=== PATIENT | female | born 1955 | race Caucasian/White ===

== ENCOUNTER 2020-12-23 09:19 | Outpatient (CLI) | payer OTHER, SELFPAY ==
--- NOTE | ~2020-12-23 | MM_ITS ---
EXAMINATION: MM screening [facility] BI w aparna HISTORY: Screening mammogram TECHNIQUE: Craniocaudal and mediolateral oblique 3-D tomosynthesis images were obtained and synthetic 2-D images were generated. CAD analysis was submitted and interpreted. COMPARISON: 06/16/2019, 03/13/2017, 09/29/2014 BREAST PARENCHYMAL COMPOSITION: There are scattered areas of fibroglandular density. FINDINGS: Stable bilateral breast masses are consistent with benign findings. There is no evidence of suspicious mass, calcification, or architectural distortion to suggest malignancy in either breast. There has been no suspicious interval change. IMPRESSION: 1. No mammographic evidence of malignancy. 2. Recommend routine screening mammography in one year. BI-RADS Category 2: Benign finding(s). Reviewed, dictated and finalized at location A.
== END 2020-12-23 09:20 | disposition home or self-care (01) ==
LOC: ANHIMG 09:22
PROVIDERS: PCP Family Medicine; Visit Provider Family Medicine
DX: Z12.31 Encounter for screening mammogram for malignant neoplasm of breast (principal)
CPT/HCPCS: 77063; 77067

== ENCOUNTER 2021-09-22 13:46 | Outpatient (CLI) | payer OTHER, SELFPAY ==
--- NOTE | ~2021-09-22 | CT_ITS ---
EXAMINATION: CT lung screening EXAM DATE: 09/22/2021 14:21 INDICATION: Screening lung cancer. TECHNIQUE: Spiral low dose CT of the chest without contrast. Axial, coronal and sagittal images were reviewed. The dose-length product (DLP) for this examination was 62.52 mGy-cm. The exposure was ta ilored according to patient size (auto mA exposure control), and iterative reconstruction (ASIR) was used as additional dose reduction technique. There is no prior study for comparison. FINDINGS: Moderate emphysema. Moderate hyperinflation. Biapical opacities consistent with scarring. Tracheobronchial tree is patent. There is no mediastinal, hilar or axillary lymphadenopathy. The re are no pleural or pericardial effusions. There is no pneumothorax. Heart normal in size. Upp er abdomen is unremarkable. There is thoracic spondylosis without osteoblastic or osteolytic lesion s identified. IMPRESSION: Lung-RADS category 2, benign appearance or behavior (<1% chance of malignancy); recommend continued LDCT screening in 1 year. Reviewed, dictated and finalized at location B.
== END 2021-09-22 13:47 | disposition home or self-care (01) ==
PROVIDERS: PCP Family Medicine; Visit Provider Physician Assistant
DX: Z12.2 Encounter for screening for malignant neoplasm of respiratory organs (principal); Z87.891 Personal history of nicotine dependence
CPT/HCPCS: 71271

== ENCOUNTER → 2021-09-22 14:34 | Outpatient (CLI) | payer OTHER, SELFPAY ==
--- NOTE | ~2021-09-22 | XR_ITS ---
XR lumbar spine min 4V DATE: 09/22/2021 15:06 INDICATION: Back pain, radiculopathy TECHNIQUE: AP, lateral, bilateral oblique views, coned lateral lumbosacral view COMPARISON: None FINDINGS: There is diffuse osteopenia. There is minimal levoscoliosis. There is moderate degenerative disc disease at L4-5. Remaining lumbar and lumbosacral interspaces are well preserved. No fracture or bone destruction, spondylolysis or spondylolisthesis. The sacroiliac joints are intact. IMPRESSION: Osteopenia Minimal levoscoliosis Moderate degenerative disc disease at L4-5 Reviewed, dictated and finalized at location A.
--- NOTE | ~2021-09-22 | XR_ITS ---
EXAMINATION: XR hip LT min 2V DATE: 09/22/2021 15:06 INDICATION: Low back pain radiating down the left leg. TECHNIQUE: 2 views of left hip were obtained. COMPARISON: None. FINDINGS: Bone alignment is normal. No fracture. Left hip joint space is normal. IMPRESSION: 1. Normal left hip. Reviewed, dictated and finalized at location A. IMPRESSION: 1. Normal left hip.
== END ==
PROVIDERS: Visit Provider Physician Assistant
DX: M54.16 Radiculopathy, lumbar region (principal); M51.36 Other intervertebral disc degeneration, lumbar region; M85.88 Other specified disorders of bone density and structure, other site
CPT/HCPCS: 72110; 73502

== ENCOUNTER 2022-10-05 12:18 | Outpatient (CLI) | payer MEDICARE, SELFPAY ==
--- NOTE | 2022-10-05 12:47 | ECG_ITS ---
Measurements Intervals [place] Rate: 63 P: 56 CA: 157 QRS: 49 QRSD: 78 T: 42 QT: 397 QTc: 408 Interpretive Statements SINUS RHYTHM NORMAL ECG NO PREVIOUS ECG AVAILABLE FOR COMPARISON Electronically Signed On 10-05-2022 14:26:15 CDT by Alejandro Gunn M.D.
== END 2022-10-05 12:19 | disposition home or self-care (01) ==
LOC: ANHCARD 12:27
PROVIDERS: PCP Family Medicine; Visit Provider Physician Assistant
DX: R07.9 Chest pain, unspecified (principal)
CPT/HCPCS: 93005

== ENCOUNTER 2022-12-13 08:07 | Outpatient (CLI) | payer MEDICARE, SELFPAY ==
--- NOTE | ~2022-12-13 | MM_ITS ---
EXAMINATION: MM screening [facility] BI w aparna HISTORY: Screening mammogram TECHNIQUE: Craniocaudal and mediolateral oblique 3-D tomosynthesis images were obtained and synthetic 2-D images were generated. CAD analysis was submitted and interpreted. COMPARISON: 12/23/2020, 06/16/2019, 03/13/2017 BREAST PARENCHYMAL COMPOSITION: There are scattered areas of fibroglandular density. FINDINGS: No suspicious mass, calcification, or architectural distortion are identified in either becca ast to suggest malignancy. There has been no suspicious interval change. IMPRESSION: 1. No mammographic evidence of malignancy. 2. Recommend routine screening mammography in one year. BI-RADS Category 1: Negative Reviewed, dictated and finalized at location A.
== END 2022-12-13 08:08 | disposition home or self-care (01) ==
PROVIDERS: PCP Family Medicine; Visit Provider Physician Assistant
DX: Z12.31 Encounter for screening mammogram for malignant neoplasm of breast (principal)
CPT/HCPCS: 77063; 77067

== ENCOUNTER 2023-02-26 11:15 | Emergency (ER) | payer MEDICARE, SELFPAY ==
[2023-02-26 11:20] VITALS: BP 133/82; PULSE 85; RESP 20; TEMP 36.5; O2SAT 99
--- NOTE | 2023-02-26 11:57 | ED.EAR ---
HPI - Ear Problem General Chief complaint: Ear Stated complaint: Right Ear Pain Time Seen by Provider: 02/26/23 11:50 Source: patient, RN notes reviewed and old records reviewed Mode of arrival: ambulatory Limitations: no limitations History of Present Illness HPI Narrative: 67 year old female presents to [facility] care with complaints of right ear itching starting on the 8th with increased symptoms since the with pain and brownish yellow drainage with some blood noted from her right ear. Patient reports past history of ear infections and has been taking some Ibuprofen and Claritin for her symptoms. Patient reports some decreased hearing from her right ear. Patient denies any known fevers, chills or sweats or any body aches. MD Complaint: ear pain, ear discharge and decreased hearing Location: right ear Duration: constant Severity: moderate Discharge from ear: Reports yes - bloody (brown and yellow) Treatment prior to arrival: oral analgesic and other (Claritin) Related Data Allergies Allergy/AdvReac Type Severity Reaction Status Date / Time clarithromycin [From Biaxin] Allergy Unknown Hives Verified 02/26/23 11:17 clindamycin Allergy Unknown Hives Verified 02/26/23 11:17 erythromycin base Allergy Unknown Hives Verified 02/26/23 11:17 acetaminophen AdvReac Unknown Nausea and Verified 02/26/23 11:17 [From Tylenol-Codeine #3] Vomiting codeine AdvReac Unknown Nausea and Verified 02/26/23 11:17 [From Tylenol-Codeine #3] Vomiting Review of Systems Review of Systems: CONSTITUTIONAL: Denies malaise, chills, sweats, or fever. EYES: Denies visual changes, redness, or discharge. ENT: Reports rhinorrhea, congestion, no sinus pain, right otalgia and no sore throat. CARDIOVASCULAR: Denies chest pain, palpitations, or edema. RESPIRATORY: Reports no cough.? Denies dyspnea. GASTROINTESTINAL: Denies abdominal pain, nausea, vomiting, diarrhea SKIN: Denies rash or itching. MUSCULOSKELETAL: Denies myalgia. NEUROLOGIC: Denies headache. All systems reviewed & are unremarkable except as noted in HPI and below PMFSH Past Medical History Medical History Disorder of intervertebral disc of cervical spine Mixed hyperlipidemia Normal colonoscopy (~2017) Osteoporosis Tobacco abuse Vitamin B12 deficiency Vitamin D deficiency Surgical History Surgical History H/O cervical discectomy 1997 C 6-7 and 2003 C 5-6 H/O vaginal hysterectomy Hx of tonsillectomy Family History Family History Grandparent Diabetes mellitus Mother Atrial fibrillation Other Back pain Cataracts, bilateral Osteoporosis Social History Social History Smoking packs per day: 0.5 Smoking cigarettes per day: 10.0 Years smoked: 40 Smoking pack-years: 20.00 Smoking status: Current every day smoker Tobacco type: cigarettes Second hand tobacco smoke exposure: No Alcohol intake: never Substance use: never Substance use type: does not use Lack of Transportation: No Lack of Food: Never True Current Housing: I Have Housing Concerned About Future Housing: No Difficulty Paying Gas/Electric Bills: No Difficulty Paying for Meds: No Currently Unemployed: No Education: High School Diploma/GED Difficulty w/ Childcare or Family Care: No Living arrangements: with family Gender identity (if verbalized by the patient): Female Sexual Orientation (if Verbalized by the Patient): Straight or Heterosexual Spiritual care concerns: No Agree to blood products: Yes Comments At time of signature, agree with nursing past medical, surgical, social and family history. There is no relevant family history pertinent to the presenting complaint Exam Narrative: GENERAL: Well-appearing, well-nourish
== END 2023-02-26 12:12 | disposition home or self-care (01) ==
PROVIDERS: Emergency Provider Registered Nurse; PCP Family Medicine
DX: H60.311 Diffuse otitis externa, right ear (principal); H66.001 Acute suppurative otitis media without spontaneous rupture of ear drum, right ear; F17.210 Nicotine dependence, cigarettes, uncomplicated; E78.5 Hyperlipidemia, unspecified; M81.0 Age-related osteoporosis without current pathological fracture
CPT/HCPCS: 99213; G0463

== ENCOUNTER 2023-11-13 10:29 | Outpatient (CLI) | payer MEDICARE, SELFPAY | END 2023-11-13 10:30 | disposition home or self-care (01) | LOC: ANHAUDASC 10:30 | PROVIDERS: PCP Family Medicine; Visit Provider Physician Assistant Medical | DX: H90.11 Conductive hearing loss, unilateral, right ear, with unrestricted hearing on the contralateral side (principal); H93.11 Tinnitus, right ear; H72.91 Unspecified perforation of tympanic membrane, right ear | CPT/HCPCS: 92557; 92567 ==

== ENCOUNTER 2023-12-21 09:27 | Outpatient (CLI) | payer MEDICARE, SELFPAY ==
--- NOTE | ~2023-12-21 | MM_ITS ---
EXAMINATION: MM screening [facility] BI w aparna HISTORY: Screening TECHNIQUE: Craniocaudal and mediolateral oblique 3-D tomosynthesis images were obtained and synthetic 2-D images were generated. CAD analysis was submitted and interpreted. COMPARISON: Comparison to multiple prior studies sequentially, with oldest reviewed study dated 09/29. BREAST PARENCHYMAL COMPOSITION: Not dense: There are scattered areas of fibroglandular density. FINDINGS: There is no evidence of suspicious mass, calcification, or architectural distortion to sugg est malignancy in either breast. There has been no suspicious interval change. IMPRESSION: 1. No mammographic evidence of malignancy. 2. Recommend routine screening mammography in one year. BI-RADS Category 1: Negative Reviewed, dictated and finalized at location B.
== END 2023-12-21 09:28 | disposition home or self-care (01) ==
LOC: ANHIMG 09:29
PROVIDERS: PCP Family Medicine; Visit Provider Family Medicine
DX: Z12.31 Encounter for screening mammogram for malignant neoplasm of breast (principal)
CPT/HCPCS: 77063; 77067

== ENCOUNTER 2024-01-23 12:48 | Outpatient (CLI) | payer MEDICARE, SELFPAY ==
--- NOTE | ~2024-01-23 | CT_ITS ---
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 TECHNIQUE: Computed tomography (CT) of the temporal bones was performed without intravenous contrast. Automated exposure control and iterative reconstruction technique were employed. The dose-length pro duct was 169.37 mGy-cm. COMPARISON: None FINDINGS: RIGHT TEMPORAL BONE: The internal auditory canal, cochlea, vestibule, semicircular canals, vestibular aqueduct, carotid ca nal, jugular bulb, facial nerve course, ossicles, Prussak space, scutum, mastoid air cells, tympanic membrane, and external artery canal are normal. LEFT TEMPORAL BONE: The internal auditory canal, cochlea, vestibule, semicircular canals, vestibular aqueduct, carotid ca nal, jugular bulb, facial nerve course, ossicles, Prussak space, scutum, tympanic cavity, mastoid air cells, and external artery canal are normal. IMPRESSION: 1. Normal temporal bones. Reviewed, dictated and finalized at location A. IMPRESSION: 1. Normal temporal bones.
== END 2024-01-23 12:49 ==
LOC: MICIMG 12:49
PROVIDERS: PCP Family Medicine
DX: H90.A31 Mixed conductive and sensorineural hearing loss, unilateral, right ear with restricted hearing on the contralateral side (principal); H90.A22 Sensorineural hearing loss, unilateral, left ear, with restricted hearing on the contralateral side; H72.91 Unspecified perforation of tympanic membrane, right ear
CPT/HCPCS: 70480

== ENCOUNTER 2024-05-10 11:48 | Emergency (ER) | payer MEDICARE, SELFPAY ==
[2024-05-10 11:54] VITALS: BP 101/64; PULSE 94; RESP 20; TEMP 36.7; O2SAT 98
--- NOTE | 2024-05-10 12:19 | ED_ITS ---
HPI - URI/Sore Throat General Chief Complaint: Upper Respiratory Infection Stated Complaint: Throat Time Seen by Provider: 05/10/24 12:14 Source: patient, RN notes reviewed and old records reviewed Mode of arrival: ambulatory Limitations: no limitations History of Present Illness HPI Narrative: 68 year old female who presents to [facility] care with complaints of 4 day history of worsening sore throat, some post nasal drainage and head congestion with some intermittent dry cough. Patient reports that has also been ill with similar symptoms and he received antibiotic and is getting better. Patient reports that she has history of allergies and sinus problems. Patient reports that she has been taking Ibuprofen and Claritin D and has been drinking tea with honey and lemon for her symptoms with no improvement. MD elicited complaint: cough, sore throat, rhinorrhea, nasal congestion and other Pertinent past history: sinusitis and seasonal allergies Onset (ago): day(s) (4) Pain scale (0-10): 9 Able to tolerate fluids by mouth: Yes Treatments prior to arrival: ibuprofen and other (Claritin D,tea with honey and lemon) Related Data Home Medications Medication Instructions Recorded Confirmed calcium 650 mg-vitamin D3 12.5 tablet PO 03/14/23 10/08/23 mcg-vitamin K 40 mcg chewable tablet (Viactiv) mecobalamin (vitamin B12) 1,000 1,000 mcg PO DAILY 03/14/23 10/08/23 mcg chewable tablet Allergies Allergy/AdvReac Type Severity Reaction Status Date / Time clarithromycin [From Biaxin] Allergy Unknown Hives Verified 05/10/24 12:16 clindamycin Allergy Unknown Hives Verified 05/10/24 12:16 erythromycin base Allergy Unknown Hives Verified 05/10/24 12:16 acetaminophen AdvReac Unknown Nausea and Verified 05/10/24 12:16 [From Tylenol-Codeine #3] Vomiting codeine AdvReac Unknown Nausea and Verified 05/10/24 12:16 [From Tylenol-Codeine #3] Vomiting Review of Systems Review of Systems: CONSTITUTIONAL: Reports malaise, no chills, sweats, or fever. EYES: Denies visual changes, redness, or discharge. ENT: Reports rhinorrhea, congestion, sinus pain, no otalgia and positive for sore throat. CARDIOVASCULAR: Denies chest pain, palpitations, or edema. RESPIRATORY: Reports cough.? Denies dyspnea. GASTROINTESTINAL: Denies abdominal pain, nausea, vomiting, diarrhea SKIN: Denies rash or itching. MUSCULOSKELETAL: Denies myalgia. NEUROLOGIC: some headache. All systems reviewed & are unremarkable except as noted in HPI and below PMFSH Past Medical History Medical History Disorder of intervertebral disc of cervical spine Mixed hyperlipidemia Normal colonoscopy (~2017) Osteoporosis Otitis externa of right ear Otitis externa, fungal, right ear Otogenic otalgia of right ear Otorrhea, right ear Tobacco abuse Vitamin B12 deficiency Vitamin D deficiency Surgical History Surgical History H/O cervical discectomy 1997 C 6-7 and 2003 C 5-6 H/O vaginal hysterectomy Hx of tonsillectomy Family History Family History Grandparent Diabetes mellitus Mother Atrial fibrillation Other Back pain Cataracts, bilateral Osteoporosis Social History Social History Social History: Caffeine-coffee/tea Smoking packs per day: 0.5 Smoking cigarettes per day: 10.0 Years smoked: 40 Smoking pack-years: 20.00 Smoking status: Former smoker Tobacco type: cigarettes Second hand tobacco smoke exposure: No Additional smoking assessment comments: quit smoking January 23 2024 Alcohol intake: never Substance use: never Substance use type: does not use Lack of Transportation: No Lack of Food: Never True Current Housing: I Have Housing Concerned About Future Housing: No Difficulty Paying Gas/Electric Bills: No Difficulty Paying for Meds: No Currently Unemployed: No Education: High School Diploma/GED Difficulty w/ Childcare or Family Care: No Living arrangements: with family Gender identity (if verbalized by the patient): Female Sexual Orientation (if Verbalized by the Patient): Straight or Heterosexual Spiritual care concerns: No Agree to blood products: Yes Comments At time of signature, agree with nursing past medical, surgical, social and family history. There is no relevant family history pertinent to the presenting complaint Exam Narrative: GENERAL: Well-appearing, well-nourished, and in no acute distress. HEAD: Normocephalic EYES: PERRLA, conjunctivae clear ENT: Nares clear, turbinates edematous and erythematous, yellowish discharge, sinus pressure and headache,. Mucous membranes moist. TM pearly oneill with dull light reflex bilaterally; no tragal tenderness. Oropharynx erythematous without lesions. Tonsils not present and throat without exudate, no drooling, no hoarseness, no trismus, uvula midline,PND NECK: Supple. No lymphadenopathy CHEST: Clear to auscultation, breath sounds equal. No wheezing, rhonchi, rales, or stridor. No respiratory distress, speaks in full sentences.occasional cough SAO2 98% on room air HEART: Regular rate and rhythm. No murmur heard. SKIN: Warm, dry, no rash. NEURO: Alert and oriented x3. PSYCH: Normal mood and affect Course Course Emergency Course: Patient is aware of diagnosis, understands and agrees to treatment plan.? A nticipatory guidance given.? Patient agrees to follow-up as directed and is aware of reasons to seek care at the emergency department. Portions of this record may have been created with voice recognition software Level of Care: Express Care Visit Vital Signs Vital signs: Vital Signs Temperature 36.7 C 05/10/24 11:54 Pulse Rate 94 05/10/24 11:54 Respiratory Rate 20 05/10/24 11:54 Blood Pressure 101/64 05/10/24 11:54 Pulse Oximetry 98 05/10/24 11:54 Oxygen Delivery Room Air 05/10/24 11:54 Temperature 36.7 C 05/10/24 11:54 Pulse Rate 94 05/10/24 11:54 Respiratory Rate 20 05/10/24 11:54 Blood Pressure 101/64 05/10/24 11:54 Pulse Oximetry 98 05/10/24 11:54 Oxygen Delivery Room Air 05/10/24 11:54 Reviewed MDM - URI/Sore Throat MDM Narrative Medical decision making narrative: Differential diagnosis considered: Velázquez virus, strep pharyngitis, allergic rhinitis, upper respiratory tract infection, sinusitis, rhinosinusitis, nasopharyngitis. viral pharyngitis, otitis media, otitis externa, pneumonia, bronchitis, viral cough syndrome, viral syndrome, and influenza.? Exam findings show no acute concerns or changes; patient is non-toxic appearing and is in no distress.? Patient is appropriate for outpatient treatment and follow-up. Differential Diagnosis Differential diagnosis: Likely upper respiratory infection, sinusitis, viral infection, pharyngitis and other (strep pharyngitis) Medical Records Attestation: I reviewed the patient's medical records. Lab Data Attestation: I reviewed the patient's lab results. Lab results narrative: strep screen negative culture sent Labs: Lab Results 05/10/24 Range/Units 12:15 POC Grp A Strep Screen Negative (Negative) Critical Care Time Critical Care Time Critical Care Time: No Discharge Plan Discharge Clinical Impression: Upper respiratory infection, Pharyngitis Patient Disposition: Home, Self-Care Condition: Stable Instructions: Antibiotic Form, Pharyngitis (ED), Upper Respiratory Infection (ED) Additional Instructions: Increase fluids especially juices and water [id number] cough and cold medicine of your choice for your symptoms Zyrtec Claritin or Lakeshia daily include plain Sudafed in a.m. and p.m. Tylenol or ibuprofen for any fever/ pain Steroids as directed--take with food heat to the face 20-30 minutes 4-6 times a day for pain Salt water gargles, throat lozenges or throat sprays as desired Antibiotic as directed--finished the medication If your symptoms persist, change or worsen significantly before you can contact your personal physician then please, without delay, go to the emergency department for further evaluation. Follow-up with PCP in 7-10 days or sooner if needed Strep screen negative Prescriptions: New amoxicillin 875 mg tablet 875 mg PO Q12H Qty: 20 0RF methylprednisolone [Medrol (Tee)] 4 mg tablets,dose pack See Rx Instructions .ROUTE .COMPLEX Qty: 21 0RF Rx Instructions: orally per package directions No Action mecobalamin (vitamin B12) 1,000 mcg tablet,chewable 1,000 mcg PO DAILY calcium-vitamin D3-vitamin K [Viactiv] 650 mg-12.5 mcg-40 mcg tablet,chewable PO atorvastatin 10 mg tablet 10 mg PO DAILY Qty: 90 3RF nicotine 21 mg/24 hr patch 24 hour 1 patch transdermal DAILY Qty: 28 0RF Rx Instructions: Then follow with 14mg daily for 14 days then 7mg daily for 14 days. Follow-up/Referrals: Sandra Moreau MD [Primary Care Provider] - Time of Disposition: 12:38 Quality Fabi Coma Scale Eyes: Open Verbal: Oriented and Alert Motor: Follows Commands Fabi Coma Total Score: 15
[2024-05-10 12:26] LABS: EDSTREPNEGPOS1 Negative (Negative)
== END 2024-05-10 12:40 | disposition home or self-care (01) ==
PROVIDERS: Emergency Provider Registered Nurse; PCP Family Medicine
DX: J06.9 Acute upper respiratory infection, unspecified (principal); J02.9 Acute pharyngitis, unspecified; Z87.891 Personal history of nicotine dependence; E78.2 Mixed hyperlipidemia; M81.0 Age-related osteoporosis without current pathological fracture; E55.9 Vitamin D deficiency, unspecified; E53.8 Deficiency of other specified B group vitamins
CPT/HCPCS: 87081; 87880; 99213; G0463

== ENCOUNTER 2024-11-07 01:07 | Day surgery (SDC) | payer MEDICARE, SELFPAY ==
[2024-11-04 08:55] VITALS: BMI 25.4
--- OUTSIDE RECORDS SUMMARY | 2024-11-07 01:09 | XMS_ITS | Clinical Summary ---
Author Organization [facility] Address [address] [place] [address] Care Team Providers Care Gameplay Engineer Name Role Phone Sandra Moreau MD Primary Care Provider [phone] Source Comments [facility],non-owned Affiliates and Associated Physician Practices is amultiple site organization consisting of ambulatory clinics and hospital sitesin [place], [place], [place] and [place]. This disclosure is being madepursuant to the Care Everywhere program and may not contain all information available regarding this patient. Last updated 18.[facility] Allergies Active Allergy Reactions Criticality Noted Date Comments Clarithromycin Urticaria High 05/15/2018 Clindamycin Other Medium 05/15/2018 makes me feel like I'm having a heart attack Codeine Headache Low 05/15/2018 migraine, with tylenol Erythromycin Nausea and/or Vomiting Medium 05/15/2018 Medications * Be aware that medications may not be up to date on this document. Alwaysverify current medications with the patient. atorvastatin (Lipitor) 10 MG tablet Take 1 (one) tablet by mouth once daily Active ofloxacin (Floxin) 0.3 % otic solution Instill 3 (three) drops into right ear once daily 5 mL 11 07/17/2024 Active predniSONE (Deltasone) 10 MG tablet Take 4 tabs for 4 days, 3 tabs for 4 days 2 tabs for 4 days and 1 tab for 4 days 40 tablet 08/28/2024 Active Active Problems No known active problems Encounters Date Type Department Care Team Description 08/28/2024 10:15 AM CDT Office Visit [facility] - ENT [address] [place] [address] Cristobal Sow MD ETD (Eustachian tube dysfunction), bilateral (Primary Dx); Perforation of right tympanic membrane; Bilateral chronic serous otitis media; 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 08/28/2024 Travel from Last 3 Months Immunizations Immunization Administration Dates Next Due FLU VACCINE TRI IIV3 SPLIT IM (FLUVIRIN) 013 INFLUENZA VACCINE, ADJUVANTE D, QUADR. (FLUAD QUADRIVALENT; 65Y+) (AIIV4) 04/09/2023 INFLUENZA VACCINE, CELL CULT URE, QUADR. (FLUCELVAX QUADRIVALENT; 6MO+) (CCIIV4) 03/14/2020,03/24/2018,04/02/2017 INFLUENZA VACCINE, HIGH-DOSE , QUADR. (FLUZONE HIGH-DOSE QUADRIVALENT; 65Y+), 0.7 ML (HD-IIV4) 04/15/2022 INFLUENZA VACCINE, QUADR. (F LUZONE; FLULAVAL; FLUARIX; AFLURIA QUADRIVALENT; 6MO+), 0.5 ML (IIV4) 06/08/2021,03/25/2019,05/07/2016 INFLUENZA VACCINE, TRIV. (FL UZONE; FLULAVAL; FLUARIX; AFLURIA TRIVALENT; 6MO+), 0.5 ML (IIV3) 04/19/2015 RSV AREXVY 60YR+ 0.5ML 04/09/2023 Family History Medical History Relation Name Comments Diabetes; unknown type Brother Parkinson's Disease Brother Osteoporosis Sister Relation Name Status Comments Brother Sister Social History Tobacco Use Types Packs/Day Years Used Date Smoking Tobacco: Former Cigarettes Passive Smoke Exposure: Never Smokeless Tobacco: Never Alcohol Use Standard Drinks/Week Comments No 0 (1 standard drink = 0.6 oz pur e alcohol) Comments No Sex and Gender Information Value Date Recorded Sex Assigned at Not on file Legal Sex Female 6:06 AM LAN ANALYST Gender Identity Not on file Sexual Orientation Not on file Last Filed Vital Signs Vital Sign Reading Time Taken Comments Blood Pressure 127/83 08/28/2024 10:51 AM CDT Pulse 78 08/28/2024 10:51 AM CDT Temperature 36.9 C (98.5 F) 07/04/2024 5:10 PM LAN ANALYST Respiratory Rate 21 07/04/2024 4:59 PM LAN ANALYST Oxygen Saturation 96% 07/04/2024 5:10 PM LAN ANALYST Inhaled Oxygen Concentration - - Weight 60.3 kg (133 lb) 08/28/2024 10:51 AM CDT Height 154.9 cm (5' 1) 08/28/2024 10:51 AM CDT Body Mass Index 25.13 08/28/2024 10:51 AM CDT Plan of Treatment Upcoming Encounters Date Type Department Care Team (Late st Contact Info) Description 11/27/2024 10:00 AM CDT Testing Visit [facility] - ENT [address] , [address] [place] [address] Melissa Brantley AuD [address] [facility] [address] [place] [address] 11/27/2024 10:30 AM CDT Office Visit [facility] - ENT [address] [place] [address] Cristobal Sow MD [address] DEPT OF [place] [address] Health Maintenance Due Date Last Done Comments BONE DENSITY TESTING 1955 COLOGUARD (AGES 45-75) - COLON CA SCREENING [address] COLON[address]APHY - COLON CA SCREENING 1955 FIT - COLON CA SCREENING 1955 FLEX SIG - COLON CA SCREENING 1955 MAMMOGRAM 1955 HEPATITIS C SCREENING 11/18/1974 DTAP/TDAP/TD VACCINES (1 - Tdap) 11/23/1975 PNEUMOCOCCAL VACCINE 50+ (1 of 1 - PCV) 2006 ZOSTER VACCINE (1 of 2) 2006 COVID-19 VACCINE (2023- season) 2024 11/15/2021, 06/15/2021, 09/30/2020, Additional history exists DEPRESSION SCREENING 06/11/2024 MEDICARE AWV CALENDAR YEAR 2024 SCREENING FOR DIABETES 08/28/2024 INFLUENZA VACCINE (Season Ended) 2025 04/09/2023, 04/15/2022, 06/08/2021, Additional history exists COLONOSCOPY - COLON CA SCREENING 05/15/2028 05/15/2018 Colorectal Cancer Screening 05/15/2028 Respiratory Syncytial Virus (RSV) Vaccine Pt: or over 60 yrs Completed 04/09/2023 HEPATITIS B VACCINE Aged Out No longe r eligible based on patient's age to complete this topic HIB VACCINE Aged Out No longer eligi ble based on patient's age to complete this topic HPV VACCINE Aged Out No longer eligi ble based on patient's age to complete this topic MENINGOCOCCAL (Group B) VACCINE SHARED DECISION-MAKING Aged Out No longer eligible based on patient's age to complete this topic MENINGOCOCCAL GROUPS A/C/Y/W VACCINE Aged Out No longer eligible based on patient's age to complete [place] [address] [employer] MEDICARE ADV Care Teams Gameplay Engineer Relationship Specialty Start Date End Date Sandra Moreau MD [address] [place] [address] PCP - General Family Medicine 01/15/24
--- OUTSIDE RECORDS SUMMARY | 2024-11-07 01:09 | XMS_ITS | Continuity of Care Document ---
Author Organization [facility] Address [address] [place] [address] Phone Care Team Providers Care Quebracho Tanner Name Role Phone Diego Ortiz MD Unavailable Unavailable Allergies, Adverse Reactions, Alerts Substance Reaction Status Criticality clindamycin Active No Information erythromycin base Active No Informa tion codeine Headache Active No Information clarithromycin Nausea Active No Informatio n Medications Medication Instructions Dosage Effective Dates (start - stop) Status Comments Lipitor 10 mg tablet take 1 tablet by or al route every day 10 MG - Active Procedures Procedure Date PREV VISIT, NEW, AGE 40-64 OFFICE/OUTPATIENT VISIT, [facility] Advance Directives Directive Yes / No Effective Date File Name No Information Encounters Encounter Description Practice Location Reason(s) For Visit Diagnoses Date Provider Providers Copied on Encounter [facility], [address] [place], [id number], tel:[phone] [facility] No Information 0 Angel Cortez. [address] [place], [place], [id number] , [place]. tel:[phone] PREV VISIT, NEW, AGE 40-64 [facility], [address] [place] [place], [id number], [place] tel:[phone] [facility] Physical (chief complaint) Encounter for general adult medical exam w abnormal findingsHyperlipide miaHyperglycemiaTob acco use 4-201 9 Angel Cortez. [address] [place], [place], [address] , [place]. tel:[phone] Family History Family Member Type Diagnosis Age At Onset Sister Problem (finding) congential deafness Brother Problem (finding) Alive and well Father Problem (finding) of C diff (Cause O f ) 75 Mother Problem (finding) Alive and well Payers Payer name Insurance type Covered libertarian ID Authoriza tion(s) No Information Social History Type Description Quantity Date Captured Comments Alcohol Use Details Unknown Caffeine Use Details Unknown Tobacco Use Status Smoking Status No Information Sex Female Chief Complaint And Reason For Visit No Information Plan Of Treatment Date Type Action Status Goal Tobacco cessation counseling completed Referral Ordered: MAMMOGRAM, SCREENING ordered Referral Ordered: DXA BONE DENSITY, AXIAL ordered Referral Ordered: CHEST X-RAY PA/LAT TWO-VIEWS ordered History Of Present Illness Encounter Date Complaint History Of Prese nt Illness Physical Pt needs annual physical. Pt has HLP Pt takes lipitor. Pt denies any myalgia. Pt had normal colonoscopy 2016 which without any polyp. pt denies any GI issue Pt was told to repeat in 10 years. Pt never had bone density. Pt does not take calcium and vitamin D. Pt had not any lab for over year. Pt had mildly high glucose around 107 last year. Pt denies any polyuria, polydipsia. Pt does smoke Pt denies any hemoptysis, sob or cough Instructions Date Instruction Additional Infor mation Weight gain advised Related to B genaro mass index (BMI) 22.0-22.9, adult Quit smoking Related to Encou nter for general adult medical exam w abnormal findings Assessments Type Assessment Date No Information
--- OUTSIDE RECORDS SUMMARY | 2024-11-07 01:09 | XMS_ITS | Clinical Summary ---
Author Organization [facility] Address [address] [place] [address] Phone Care Team Providers Care Supervisor Firearms Name Role Phone Everardo Amador MD Primary Care Provider [phone] Allergies Active Allergy Reactions Criticality Noted Date Comments Clarithromycin Hives High 05/15/2018 Clindamycin Other (See Comments) Medium 05/15/2018 makes me feel like I'm having a heart attack Codeine Headache Low 05/15/2018 migraine Erythromycin Nausea and Vomiting Medium 05/15/2018 Medications atorvastatin (LIPITOR) 10 mg tablet Take 10 mg by mouth daily with supper. Active Family History Relation Name Status Comments Father Mother Alive Social History Tobacco Use Types Packs/Day Years Used Date Smoking Tobacco: Every Day Cigarettes 1 40 Smokeless Tobacco: Never Tobacco Cessation:Ready to Q uit: No Alcohol Use Standard Drinks/Week Comments Yes 0 (1 standard drink = 0.6 oz pur e alcohol) rarely/socially Comments No Sex and Gender Information Value Date Recorded Sex Assigned at Not on file Legal Sex Female 11:07 PM CDT Gender Identity Not on file Sexual Orientation Not on file Last Filed Vital Signs Vital Sign Reading Time Taken Comments Blood Pressure 101/71 05/15/2018 10:57 AM ADVERTISER Pulse 68 05/15/2018 10:57 AM ADVERTISER Temperature 36.5 C (97.7 F) 05/15/2018 10:38 AM ADVERTISER Respiratory Rate 15 05/15/2018 10:57 AM ADVERTISER Oxygen Saturation 94% 05/15/2018 10:57 AM ADVERTISER Inhaled Oxygen Concentration - - Weight 54.9 kg (121 lb) 05/15/2018 9:57 AM ADVERTISER Height 154.9 cm (5' 1) 05/15/2018 9:57 AM ADVERTISER Body Mass Index 22.86 05/15/2018 9:57 AM ADVERTISER Plan of Treatment Health Maintenance Due Date Last Done Comments DTAP/TDAP/TD VACCINES (1 - Tdap) 11/23/1975 BREAST CANCER SCREENING 1996 FIT-DNA Q 3 years 2001 FIT/FOBT Q 1 year 2001 Flex Sig/CT Colonography Q 5 years 2001 PNEUMOCOCCAL VACCINE 50+ YEA RS (1 of 1 - PCV) 2006 ZOSTER VACCINE (1 of 2) 2006 OSTEOPOROSIS SCREENING 2021 INFLUENZA VACCINE (#1) 2024 COLORECTAL SCREENING 05/15/2028 05/15/2018, 05/15/20 18 Colorectal Cancer Screening 05/15/2028 RSV VACCINE (60+ or ) (1 - 1-dose 75+ series) 11/23/2031 Procedures Procedure Name Priority Date/Time Associated Diagnosis Comments COLONOSCOPY REPORT 05/15/2018 10 :41 AM ADVERTISER from Last 3 Months or Most Recently Relevant to Health Maintenance Results * COLONOSCOPY REPORT (05/15/2018 10:41 AM ADVERTISER) Narrative Procedure Note Pavithra Mercado MD - 05/15/2018 10:41 AM CST [facility] Endoscopy Patient Name: Magdalena Peña Procedure Date: 05/15/2018 Date of : 1955 Admit Type: Outpatient Attending MD: Pavithra Mercado MD Procedure: Colonoscopy Indications: Screening for colorectal malignant neoplasm, . Providers: Pavithra Mercado MD Referring MD: Everardo Amador MD Medicines: Monitored Anesthesia Care Complications: No immediate complications. Estimated blood loss: None. Procedure: Informed consent was obtained for the procedure, including moderate sedation after risks were discussed. Based on the pre-procedure assessment, including review of the patient's medical history, medications, allergies, and review of systems, the patient was deemed to be an appropriate candidate for sedation. A timeout was performed. Continuous ECG monitoring, pulse oximetry, blood pressure monitoring, and direct observation were performed. The Colonoscope was introduced through the anus and advanced to the cecum, identified by appendiceal orifice and ileocecal valve. The colonoscopy was performed without difficulty. The patient tolerated the procedure well. The quality of the bowel preparation was excellent. Findings: The colon (entire examined portion) appeared normal. The perianal and digital rectal examinations were normal. Pertinent negatives include normal sphincter tone, no palpable rectal lesions and no anal lesion or abnormality was detected. Impression: - The entire examined colon is normal. Recommendation: - High fiber diet daily. - Repeat colonoscopy in 10 years for screening purposes and for surveillance. Procedure Code(s): --- Professional --- 49019, Colonoscopy, flexible; diagnostic, including collection of specimen(s) by brushing or washing, when performed (separate procedure) CPT copyright 2016 [employer]. All rights reserved. The codes documented in this report are preliminary and upon wrapper selector review may be revised to meet current compliance requirements. Pavithra Mercado MD 05/15/2018 10:41:09 AM This report has been signed electronically. Number of Addenda: [phone] [place] [address] Pavithra Mercado MD GI PROCEDURE ORDERABLES Fi nal Result from Last 3 Months or Most Recently Relevant to Health Maintenance Care Teams Supervisor Firearms Relationship Specialty Start Date End Date Everardo Amador MD [address] [place] [address] PCP - General Family Practice 05/08/18
--- OUTSIDE RECORDS SUMMARY | 2024-11-07 01:09 | XMS_ITS | Continuity of Care Document ---
Author Organization [facility] Address [address] [place] [address] [place] [address] Phone Care Team Providers Care Quality Control Inspector Heading Name Role Phone Braswell OD, Nadeem Unavailable Unavailable Procedures Procedure Date Eye Exam & Treatment Eye Exam & Treatment Refraction Advance Directives Directive Yes / No Effective Date File Name No Information Encounters Encounter Description Practice Location Reason(s) For Visit Diagnoses Date Provider Providers Copied on Encounter [facility], [address] [place] [address] [address], [place], [place], [id number], tel:[phone] [facility] No Information [address]well OD Nadeem. [address], [place], [place], [facility], [place]. tel:[phone] [facility], [address] [place] [address] [address], [place], [place], [address], tel:[phone] [facility] No Information 6-[address] 8 Braswell OD Nadeem. [address] , [address], [place], [address], [place]. tel:[phone] Family History Family Member Type Diagnosis Age At Onset No Information Payers Payer name Insurance type Covered alliance party ID Authoriza tion(s) No Information Social History Type Description Quantity Date Captured Comments Sex Female Smoking Status No Information Chief Complaint And Reason For Visit No Information Reason For Referral Reason For Referral No Information History Of Present Illness Encounter Date Complaint History Of Prese nt Illness No Information Functional Status Date Functional Assessmen t No Information Instructions Date Instruction Additional Infor mation No Information Assessments Type Assessment Date No Information Patient Care Teams Name Effective Dates (start - stop) Status Members No Information
[2024-11-07 12:46] VITALS: BP 112/61; PULSE 69; RESP 17; TEMP 36.1; O2SAT 96; BMI 25.2
[2024-11-07] MEDS: LACTATED RINGERS 1,000 ML 150 ML IV CONT (12:54)
--- NOTE | 2024-11-07 13:04 | WPDANESEPPF ---
Anes - Initial Pre Proc Eval Procedure: Operation Date: 11/07/24 14:00 Proposed Procedures p Esophagogastroduodenoscopy - Pj Mata MD Date/Time: 11/07/24 13:04 Surgeon: Pj Mata MD Pre Op Diagnosis: Foreign body sensation, throat, GERD Patient Data Age: 68 Gender: F Height: 1.55 m Weight: 60.7 kg Last Vital Signs Temp 36.1 C L 11/07/24 12:46 Pulse 69 11/07/24 12:46 Resp 17 11/07/24 12:46 BP 112/61 11/07/24 12:46 Pulse Ox 96 11/07/24 12:46 O2 Del Method Room Air 11/07/24 12:46 Allergies Allergy/AdvReac Type Severity Reaction Status Date / Time clarithromycin (From Biaxin) Allergy Unknown Hives Verified 11/07/24 12:43 clindamycin Allergy Unknown Hives Verified 11/07/24 12:43 erythromycin base Allergy Unknown Hives Verified 11/07/24 12:43 acetaminophen (From AdvReac Unknown Nausea and Verified 11/07/24 12:43 Tylenol-Codeine #3) Vomiting codeine (From AdvReac Unknown Nausea and Verified 11/07/24 12:43 Tylenol-Codeine #3) Vomiting Home Medications ?Medication ?Instructions ?Recorded ?Confirmed ?Type calcium 650 mg-vitamin D3 12.5 1 tablet PO DAILY 03/14/23 11/04/24 History mcg-vitamin K 40 mcg chewable tablet (Viactiv) mecobalamin (vitamin B12) 1,000 1,000 mcg PO DAILY 03/14/23 11/04/24 History mcg chewable tablet atorvastatin 10 mg tablet 10 mg PO DAILY #90 tabs 05/30/24 11/04/24 Rx Patient hx anesthesia problems: none Family hx anesthesia problems: none Results Review: All pre-operative results and documents have been reviewed as part of the pre-operative evaluation. 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 Vitamin B12 deficiency Vitamin D deficiency Surgical History Surgical History History of ear surgery (~07/04/24) Hx of tonsillectomy H/O cervical discectomy 1997 C 6-7 and 2003 C 5-6 H/O vaginal hysterectomy Family History Family History Grandparent Diabetes mellitus Mother Atrial fibrillation Other Back pain Cataracts, bilateral Osteoporosis Social History Social History Social History: Caffeine-coffee/tea Smoking packs per day: 0.5 Smoking cigarettes per day: 10.0 Years smoked: 40 Smoking pack-years: 20.00 Smoking status: Former smoker Tobacco type: cigarettes Second hand tobacco smoke exposure: No Additional smoking assessment comments: quit smoking January 23 2024 Alcohol intake: never Substance use: never Substance use type: does not use Lack of Transportation: No Lack of Food: Never True Current Housing: I Have Housing Concerned About Future Housing: No Difficulty Paying Gas/Electric Bills: No Difficulty Paying for Meds: No Currently Unemployed: No Education: High School Diploma/GED Difficulty w/ Childcare or Family Care: No Living arrangements: with family Gender identity (if verbalized by the patient): Female Sexual Orientation (if Verbalized by the Patient): Straight or Heterosexual Spiritual care concerns: No Agree to blood products: Yes Anes - Eval Final PreProcedure Day of Procedure 11/07/24 13:04 Patient weight: overweight Heart: regular rate and rhythm Lungs: clear to auscultation Airway: Mallampati scale class II Neurological: alert and oriented Last oral intake: >/= 8 hours ASA classification: III Emergent: no Anesthetic plan: proceed Anesthesia type and monitoring: general GIVS and standard monitoring Results Review: All pre-operative results and documents have been reviewed as part of the pre-operative evaluation. Informed Consent: The patient's anesthetic plan and its attendant risks and benefits were discussed with the patient/family/POA. Questions were solicited and answers provided to the satisfaction of the patient/family/POA.
--- NOTE | 2024-11-07 14:02 | PM.IMHP ---
H&P: HPI History of Present Illness Date/Time: 11/07/24 14:02 Chief Complaint: GERD Narrative: the patient has been suffering from GERD for several years, being treated only intermittently with occasional H2 blockers or PPIs on a as needed basis only. She is here for EGD. She also complains of a permanent sensation of phlegm/discomfort in her throat after COVID which she got in April last year. Review of Systems Review of Systems: All systems reviewed & are unremarkable except as noted in HPI and below PMFSH Past Medical History Medical History Otorrhea, right ear Otitis externa, fungal, right ear Otogenic otalgia of right ear Otitis externa of right ear Tobacco abuse Normal colonoscopy (~2016) Mixed hyperlipidemia Osteoporosis Disorder of intervertebral disc of cervical spine Vitamin B12 deficiency Vitamin D deficiency Surgical History Surgical History History of ear surgery (~07/04/24) Hx of tonsillectomy H/O cervical discectomy 1997 C 6-7 and 2003 C 5-6 H/O vaginal hysterectomy Family History Family History Grandparent Diabetes mellitus Mother Atrial fibrillation Other Back pain Cataracts, bilateral Osteoporosis Social History Social History Social History: Caffeine-coffee/tea Smoking packs per day: 0.5 Smoking cigarettes per day: 10.0 Years smoked: 40 Smoking pack-years: 20.00 Smoking status: Former smoker Tobacco type: cigarettes Second hand tobacco smoke exposure: No Additional smoking assessment comments: quit smoking January 23 2024 Alcohol intake: never Substance use: never Substance use type: does not use Lack of Transportation: No Lack of Food: Never True Current Housing: I Have Housing Concerned About Future Housing: No Difficulty Paying Gas/Electric Bills: No Difficulty Paying for Meds: No Currently Unemployed: No Education: High School Diploma/GED Difficulty w/ Childcare or Family Care: No Living arrangements: with family Gender identity (if verbalized by the patient): Female Sexual Orientation (if Verbalized by the Patient): Straight or Heterosexual Spiritual care concerns: No Agree to blood products: Yes Meds Home Medications and Allergies Home Medications ?Medication ?Instructions ?Recorded ?Confirmed ?Type calcium 650 mg-vitamin D3 12.5 1 tablet PO DAILY 03/14/23 11/04/24 History mcg-vitamin K 40 mcg chewable tablet (Viactiv) mecobalamin (vitamin B12) 1,000 1,000 mcg PO DAILY 03/14/23 11/04/24 History mcg chewable tablet atorvastatin 10 mg tablet 10 mg PO DAILY #90 tabs 05/30/24 11/04/24 Rx Allergies Allergy/AdvReac Type Severity Reaction Status Date / Time clarithromycin (From Biaxin) Allergy Unknown Hives Verified 11/07/24 12:43 clindamycin Allergy Unknown Hives Verified 11/07/24 12:43 erythromycin base Allergy Unknown Hives Verified 11/07/24 12:43 acetaminophen (From AdvReac Unknown Nausea and Verified 11/07/24 12:43 Tylenol-Codeine #3) Vomiting codeine (From AdvReac Unknown Nausea and Verified 11/07/24 12:43 Tylenol-Codeine #3) Vomiting Vital Signs Vital Signs - 24 hr 11/07/24 12:46 Temperature 97 F L Pulse Rate 69 Respiratory Rate 17 Blood Pressure 112/61 Pulse Oximetry 96 Oxygen Delivery Room Air Exam Const: General: cooperative and healthy appearing Resp: Effort & Inspection: normal respiratory effort and able to speak in complete sentences Auscultation: clear to auscultation bilaterally Cardio: Rate: regular rate Rhythm: regular rhythm GI: Inspection: normal to inspection GI Palp: No No hepatosplenomegaly present Auscultation: normal bowel sounds Rectal Exam: deferred Skin: General skin exam: normal color Psych: Appearance: grossly normal Mental Status: mental status grossly normal Assessment and Plan Assessment and plan (1) Dysphagia: Code(s): R13.10 - Dysphagia, unspecified Status: Acute Assessment and Plan: The patient is deemed a good candidate for the procedure. Consent signed. Will proceed.
[2024-11-07] MEDS: SIMETHICONE ORAL SUSPENSION 20 MG/0.3 ML 30 ML BOTTLE 0.6 ML IRRIGATION (14:09)
[2024-11-07 14:14] VITALS: BP 107/65; PULSE 89; RESP 22; O2SAT 96
--- NOTE | 2024-11-07 14:14 | S_PTH ---
PATIENT: Magdalena Peña LOC: [place] #:[id number] AGE/SX: 68/F ROOM: RE11/07/[address]: Pj Mata MD : 1955 BED: DIS: 11/07/2024 SPEC #: [id number] RECD: 11/10/24 07:35 STATUS: SOUKimberley REQ #: [id number] ZABRINA: 11/07/24 14:[address]: Pj Mata DEPT: [facility] Surgical RECD BY: Teagan Rolle ENTERED: 11/10/24 07:35 SP TYPE: Surgical OTHR DR: Sandra MoreauMD Tissues: A - Gastric Biopsy B - Gastric Biopsy Procedures: Hematoxylin and Eosin Stain Gross and Microscopic Level 4
[2024-11-07 14:24] VITALS: BP 91/53; PULSE 77; RESP 19; O2SAT 97
[2024-11-07 14:34] VITALS: BP 98/58; PULSE 69; RESP 17; O2SAT 97
== END 2024-11-07 14:49 | disposition home or self-care (01) ==
PROVIDERS: PCP Family Medicine; Referring Provider Student in an Organized Health Care Education/Training Program; Visit Provider Internal Medicine Gastroenterology
PROC: 0DJ08ZZ Inspection of Upper Intestinal Tract, Via Natural or Artificial Opening Endoscopic (ICD-10-PCS; CPT 43239; principal; 2024-11-07 14:00)
DX: K21.00 Gastro-esophageal reflux disease with esophagitis, without bleeding (principal); R13.10 Dysphagia, unspecified; K29.30 Chronic superficial gastritis without bleeding; Z87.891 Personal history of nicotine dependence
CPT/HCPCS: 43239; 88305; J7120

== ENCOUNTER 2025-02-26 10:02 | Outpatient (CLI) | payer MEDICARE, SELFPAY ==
--- NOTE | ~2025-02-26 | MM_ITS ---
EXAMINATION: MM screening chandrika BI w aparna HISTORY: Screening TECHNIQUE: Craniocaudal and mediolateral oblique 3-D tomosynthesis images were obtained and synthetic 2-D images were generated. CAD analysis was submitted and interpreted. COMPARISON: 12/13/2022 BREAST PARENCHYMAL COMPOSITION: There are scattered areas of fibroglandular density. FINDINGS: There is no evidence of suspicious mass, calcification, or architectural distortion to suggest malignancy. There has been no suspicious interval change. IMPRESSION: 1. No mammographic evidence of malignancy. Recommend routine screening mammography in one year. BI-RADS Category 2: Benign finding(s) Reviewed, dictated and finalized at location Q. IMPRESSION: 1. No mammographic evidence of malignancy. Recommend routine screening mammogra phy in one year. BI-RADS Category 2: Benign finding(s)
--- OUTSIDE RECORDS SUMMARY | 2025-02-26 10:39 | XMS_ITS | Clinical Summary ---
Author Organization [facility] Address [address] [facility] [place] [address] Care Team Providers Care Auto Porter Name Role Phone Sandra Moreau MD Primary Care Provider [phone] Source Comments [facility],non-owned Affiliates and Associated Physician Practices is amultiple site organization consisting of ambulatory clinics and hospital sitesin [place], [place], [place]. This disclosure is being madepursuant to the Care Everywhere program and may not contain all information available regarding this patient. Last updated 18.[facility] Allergies Active Allergy Reactions Criticality Noted Date [...] right ear once daily 5 mL 11 5 Active predniSONE (Deltasone) 10 MG tablet Take 4 tabs for 4 days, 3 tabs for 4 days 2 tabs for 4 days and 1 tab for 4 days 40 tablet 5 Active Additional Information Patient not taking.Reported on 11/27/2024 Active Problems No known active problems Encounters Date Type Department Care Team Description 11/27/2024 10:30 AM CDT Office Visit [facility] - ENT [address] [place] [phone] Cristobal Sow MD ETD (Eustachian tube dysfunction), bilateral (Primary Dx); Bilateral chronic serous otitis media; 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; Impacted cerumen of right ear 11/27/2024 10:00 AM CDT Testing Visit [facility] - ENT [address], [address] [place] [phone] Melissa Brantley AuD 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 11/27/2024 Travel from Last 3 Months Immunizations Immunization [...] Passive Smoke Exposure: Never Smokeless Tobacco: Never Tobacco Cessation:Counseling Given: Not Answered Alcohol Use Standard Drinks/Week Comments No 0 (1 standard drink = 0.6 oz pur e alcohol) Comments No Sex and Gender Information Value Date Recorded Sex Assigned at Not on file Legal Sex Female 6:06 AM ROPE TOW OPERATOR Gender Identity Not on file Sexual Orientation Not on file Last Filed Vital Signs Vital Sign Reading Time Taken Comments Blood Pressure 122/80 11/27/2024 10:22 AM CDT Pulse 80 11/27/2024 10:22 AM CDT Temperature 36.9 C (98.5 F) 07/04/2024 5:10 PM ROPE TOW OPERATOR Respiratory Rate 21 07/04/2024 4:59 PM ROPE TOW OPERATOR Oxygen Saturation 96% 07/04/2024 5:10 PM ROPE TOW OPERATOR Inhaled Oxygen Concentration - - Weight 59.4 kg (131 lb) 11/27/2024 10:22 AM CDT Height 154.9 cm (5' 1) 11/27/2024 10:22 AM CDT Body Mass Index 24.75 11/27/2024 10:22 AM CDT Plan of Treatment Upcoming Encounters Date Type Department Care Team (Late st Contact Info) Description 12/03/2025 10:00 AM CDT Testing Visit [facility] - ENT [address] [facility] [address] [place] [address] Melissa Brantley AuD [address] [facility] [address] [place] [address] 12/03/2025 10:30 AM CDT Office Visit [facility] - ENT [address] [place] [phone] Cristobal Sow MD [address] [place] [address] Health Maintenance Due Date Last Done Comments BONE DENSITY TESTING 1955 COLOGUARD (AGES 45-75) - COLON CA SCREENING 1955 CT COLONOGRAPHY - COLON CA SCREENING 1955 FIT - COLON CA SCREENING 1955 FLEX SIG - COLON CA SCREENING 1955 MAMMOGRAM 1955 HEPATITIS C SCREENING 11/18/1974 DTAP/TDAP/TD VACCINES (1 - Tdap) 11/23/1975 PNEUMOCOCCAL VACCINE 50+ (1 of 1 - PCV) 2006 ZOSTER VACCINE (1 of 2) 2006 DEPRESSION SCREENING 06/11/2024 MEDICARE AWV CALENDAR YEAR 2024 COVID-19 VACCINE ( season) 2025 11/15/2021, 06/15/2021, 09/30/2020, Additional history exists INFLUENZA VACCINE (#1) 2025 , 04/15/2022, 06/08/2021, Additional history exists COLON MONITORING 05/15/2028 05/15/2018 COLONOSCOPY - COLON CA SCREENING 05/15/2028 05/15/2018 [...] on patient's age to complete this topic Procedures Procedure Name Priority Date/Time Associated Diagnosis Comments AUDIOLOGY/TYMPANOME TRY ORDER Routine 11/27/2024 10:16 AM CDT from Last 3 Months Results * AUDIOLOGY/TYMPANOMETRY ORDER (11/27/2024 10:16 AM CDT) Narrative Melissa Brantley AuD - 11/27/2024 10:16 AM CDT History: Magdalena Peña is a 69 year old female was seen for an assessment of their hearing. Patient recently had a tympanoplasty on the right side is is recovering. She feels that her hearing has improved since recovery. She denies any pain, pressure, or drainage. Results: Puretone air/bone conduction testing revealed a mild rising to normal, sloping to moderate at 6000 Hz conductive hearing in the right ear and a normal sloping to mild sensorineural hearing in the left ear. Speech Sr. Vendor Management Associate Thresholds is in good agreement with pure tone average(see speech audiometry for details). Speech understanding was excellent in the right ear and excellent in the left ear. These results were discussed in detail with the patient and all pertinent questions were answered. Recommendations: 1) ENT consult. 2) Re check per medical recommendation, annually, or if a change in hearing is suspected. 3) Hearing protection in noise. Zachariah Hernandez. [facility] Clinical Circulation Representative Division of Audiology Department of Otolaryngology- Head & Neck Surgery [facility] Lic#: [id number] us Melissa Soni AUDIOLOGY SERVICES ORDERABL ES Final Result from Last 3 [place] [address] AETNA MEDICARE ADV Care Teams Auto Porter Relationship Specialty Start Date End Date Sandra Moreau MD [address] [place], [place] [address] PCP - General Family Medicine 01/15/24
--- OUTSIDE RECORDS SUMMARY | 2025-02-26 10:39 | XMS_ITS | Clinical Summary ---
Author Organization [facility] Address [address] [place] [address] Phone Care Team Providers Care Bearing Press Machine Operator Name Role Phone Everardo Amador MD Primary Care Provider [phone] Allergies Active Allergy Reactions Criticality Noted Date [...] Comments Blood Pressure 101/71 05/15/2018 10:57 AM ASSISTANT CREDIT MANAGER Pulse 68 05/15/2018 10:57 AM ASSISTANT CREDIT MANAGER Temperature 36.5 C (97.7 F) 05/15/2018 10:38 AM ASSISTANT CREDIT MANAGER Respiratory Rate 15 05/15/2018 10:57 AM ASSISTANT CREDIT MANAGER Oxygen Saturation 94% 05/15/2018 10:57 AM ASSISTANT CREDIT MANAGER Inhaled Oxygen Concentration - - Weight 54.9 kg (121 lb) 05/15/2018 9:57 AM ASSISTANT CREDIT MANAGER Height 154.9 cm (5' 1) 05/15/2018 9:57 AM ASSISTANT CREDIT MANAGER Body Mass Index 22.86 05/15/2018 9:57 AM ASSISTANT CREDIT MANAGER Plan of Treatment Health Maintenance Due Date Last Done Comments DTAP/TDAP/TD VACCINES (1 - Tdap) 11/23/1975 BREAST CANCER SCREENING 1996 FIT-DNA Q 3 years 2001 FIT/FOBT Q 1 year 2001 Flex Sig/CT Colonography Q 5 years 2001 PNEUMOCOCCAL VACCINE 50+ YEA RS (1 of 1 - PCV) 2006 ZOSTER VACCINE (1 of 2) 2006 OSTEOPOROSIS SCREENING 2021 INFLUENZA VACCINE (#1) 2025 COLORECTAL SCREENING 05/15/2028 05/15/2018, 05/15/20 18 Colorectal Cancer Screening 05/15/2028 RSV VACCINE (60+ or ) (1 - 1-dose 75+ series) 11/23/2031 Procedures Procedure Name Priority Date/Time Associated Diagnosis Comments COLONOSCOPY REPORT 05/15/2018 10 :41 AM ASSISTANT CREDIT MANAGER from Last 3 Months or Most Recently Relevant to Health Maintenance Results * COLONOSCOPY REPORT (05/15/2018 10:41 AM ASSISTANT CREDIT MANAGER) Narrative Procedure Note Pavithra Mercado MD - 05/15/2018 10:41 AM CST [facility] Endoscopy Patient Name: Magdalena Peña Procedure Date: [...] for surveillance. Procedure Code(s): --- Professional --- 43586, Colonoscopy, flexible; diagnostic, including collection of specimen(s) by brushing or washing, when performed (separate procedure) CPT copyright 2016 [employer]. All rights reserved. The codes documented in this report are preliminary and upon banquet steward review may be revised to meet current compliance requirements. Pavithra Mercado MD 05/15/2018 10:41:09 AM This report has been signed electronically. Number of Addenda: [id number] [place] [address] Pavithra Mercado MD GI PROCEDURE ORDERABLES Fi nal Result from Last 3 Months or Most Recently Relevant to Health Maintenance Care Teams Bearing Press Machine Operator Relationship Specialty Start Date End Date Everardo Amador MD [address] [place] [address] PCP - General Family Practice 05/08/18
--- OUTSIDE RECORDS SUMMARY | 2025-02-26 10:39 | XMS_ITS | Clinical Summary ---
Author Organization [facility] Address [address] [place] [address] Care Team Providers Care Clay Processing Labourer Name Role Phone Unavailable Primary Care Provider Unavailabl e Social History Tobacco Use Types Packs/Day Years Used Date Smoking Tobacco: Never Assessed Comments Unknown Sex and Gender Information Value Date Recorded Sex Assigned at Not on file Legal Sex Female 7:36 PM CDT Gender Identity Not on file Sexual Orientation Not on file Plan of Treatment Health Maintenance Due Date Last Done Comments Colorectal Cancer Screening Colonoscopy (10 Years) 1955 Hepatitis C 1974 DTaP, Tdap and Td Vaccines ( 1 - Tdap) 11/23/1975 Mammogram Screening 1996 Pneumococcal Vaccine: 50+ Ye ars (1 of 1 - PCV) 2006 Zoster Vaccines (1 of 2) 2006 Dexa Scan (General) 2021 COVID-19 Vaccine ( - 2023-2 5 season) 2025 RSV Immunization or 60+ Years (1 - 1-dose 75+ series) 11/23/2031 Meningococcal B Vaccine Aged Out No l onger eligible based on patient's age to complete this topic Meningococcal Vaccine Aged Out No colten randall eligible based on patient's age to complete this topic RSV Immunizations Under 20 Months Aged Out No longer eligible based on patient's age to complete this topic
== END 2025-02-26 10:03 | disposition home or self-care (01) ==
LOC: ANHFOHIMG 10:05
PROVIDERS: PCP Family Medicine; Visit Provider Student in an Organized Health Care Education/Training Program
DX: Z12.31 Encounter for screening mammogram for malignant neoplasm of breast (principal)
CPT/HCPCS: 77063; 77067

== ENCOUNTER 2025-04-01 10:49 | Emergency (ER) | payer MEDICARE, SELFPAY ==
[2025-04-01 10:53] VITALS: BP 142/71; PULSE 77; RESP 16; TEMP 36.9; O2SAT 100
--- NOTE | 2025-04-01 10:55 | ED_ITS ---
HPI - Skin/Abscess/Foreign Bdy General Chief complaint: Skin/Abscess/Foreign Body Stated complaint: Rash/arms and back Time Seen by Provider: 04/01/25 11:00 Source: patient Mode of arrival: ambulatory Limitations: no limitations History of Present Illness HPI narrative: Magdalena is a 69-year-old female patient presenting to the clinic today with complaints of a itchy, wheeze, rash on her bilateral arms and back x3 days. She reports her symptoms started Sunday morning when she woke up. She denies any environmental changes such as shampoos, lotions, detergents, or foods. States that she just had her levothyroxine refilled and is concerned that they may have changed the formulary. She has tried to contact her PCP but she has not gotten any response. Has not taken any medications to treat her symptoms. Denies any shortness of breath, difficulty breathing, or difficulty swallowing Related Data Allergies Allergy/AdvReac Type Severity Reaction Status Date / Time clarithromycin (From Biaxin) Allergy Unknown Hives Verified 04/01/25 11:00 clindamycin Allergy Unknown Hives Verified 04/01/25 11:00 erythromycin base Allergy Unknown Hives Verified 04/01/25 11:00 acetaminophen (From AdvReac Unknown Nausea and Verified 04/01/25 11:00 Tylenol-Codeine #3) Vomiting codeine (From AdvReac Unknown Nausea and Verified 04/01/25 11:00 Tylenol-Codeine #3) Vomiting Review of Systems Review of Systems: Pertinent positives per HPI. Patient denies any fever, chills, headache, visual changes, dizziness, cough, runny nose, sore throat, shortness of breath, chest pain, palpitations, nausea, vomiting, diarrhea, constipation, abdominal pain, or any urinary issues. 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 Vitamin B12 deficiency Vitamin D deficiency Surgical History Surgical History History of ear surgery (~07/04/24) Hx of tonsillectomy H/O cervical discectomy 1997 C 6-7 and 2003 C 5-6 H/O vaginal hysterectomy Family History Family History Grandparent Diabetes mellitus Mother Atrial fibrillation Other Back pain Cataracts, bilateral Osteoporosis Social History Social History Social History: Caffeine-coffee/tea Smoking packs per day: 0.5 Smoking cigarettes per day: 10.0 Years smoked: 40 Smoking pack-years: 20.00 Smoking status: Former smoker Tobacco type: cigarettes Second hand tobacco smoke exposure: No Additional smoking assessment comments: quit smoking January 23 2024 Alcohol intake: never Substance use: never Substance use type: does not use Lack of Transportation: No Lack of Food: Never True Current Housing: I Have Housing Concerned About Future Housing: No Difficulty Paying Gas/Electric Bills: No Difficulty Paying for Meds: No Currently Unemployed: No Education: High School Diploma/GED Difficulty w/ Childcare or Family Care: No Living arrangements: with family Gender identity (if verbalized by the patient): Female Sexual Orientation (if Verbalized by the Patient): Straight or Heterosexual Spiritual care concerns: No Agree to blood products: Yes Comments At the time of my signature, I reviewed and agree with the nursing past medical, surgical, social, and family history. There is no relevant family history pertinent to the patient complaint. Exam Narrative: General: Well-developed, well nourished, in no apparent distress Head: Normocephalic, atraumatic. Cardio: Regular rate and rhythm, s1 and s2 normal, no murmur appreciated. Resp: Clear to auscultation bilaterally, no rhonchi, rales, wheezing or rubs. Integumentary: [place], warm, and dry, red raised hive-like itchy rash on her arms and on her back. Course Course Emergency Course: Portions of this record may have been created with voice recognition software. Level of Care: Express Care Visit Vital Signs Vital signs: Vital Signs Temperature 36.9 C 04/01/25 10:53 Pulse Rate 77 04/01/25 10:53 Respiratory Rate 16 04/01/25 10:53 Blood Pressure 142/71 H 04/01/25 10:53 Pulse Oximetry 100 04/01/25 10:53 Oxygen Delivery Room Air 04/01/25 10:53 Temperature 36.9 C 04/01/25 10:53 Pulse Rate 77 04/01/25 10:53 Respiratory Rate 16 04/01/25 10:53 Blood Pressure 142/71 H 04/01/25 10:53 Pulse Oximetry 100 04/01/25 10:53 Oxygen Delivery Room Air 04/01/25 10:53 Vital signs reviewed MDM - Skin/Abscess/Foreign Bdy MDM Narrative Medical decision making narrative: At the time of visit patient is resting comfortably on the exam table. Patient appears to be nontoxic. Complaints of a itchy, wheeze, rash on her bilateral arms and back x3 days. She reports her symptoms started Sunday morning when she woke up. She denies any environmental changes such as shampoos, lotions, detergents, or foods. States that she just had her levothyroxine refilled and is concerned that they may have changed the formulary. She has tried to contact her PCP but she has not gotten any response. Has not taken any medications to treat her symptoms. Denies any shortness of breath, difficulty breathing, or difficulty swallowing. On exam patient has red raised hive-like itchy rash on her arms and on her back. Plan: I suspect patient has hives. Prescription for taper dose prednisone and Pepcid was sent to the pharmacy. Supportive measures were discussed with the patient and they voiced understanding discharge instructions and agrees to treatment plan. Return precautions reviewed Differential Diagnosis Differential diagnosis: Likely abscess of skin or subcutaneous tissue, viral exanthem, dermatophytosis, urticaria, herpes zoster, allergic reaction to drug, cellulitis, eczema, insect bites, impetigo and contact dermatitis Discharge Plan Discharge Clinical Impression: Acute urticaria Patient Disposition: Home Condition: Stable Instructions: Antibiotic Form, Urticaria (ED) Additional Instructions: Take prednisone and Pepcid as directed Avoid hot showers Avoid scratching as this can cause a secondary infection May take benadryl 25-50mg every 6 hours as needed for itching. Follow up with your PCP in 3-5 days if symptoms persist or sooner if they worsen Go to the Emergency Room if symptoms worsen- fever, rash spreading with treatment, shortness of breath, tongue swelling, drooling, or chest pain Patient Language: Telugu Prescriptions: New prednisone 10 mg tablet 10 mg PO DAILY Qty: 30 0RF Rx Instructions: 60mg po daily on day 1, 40mg po daily on days 2-4, 30mg po daily on days 5-6, 20mg po daily on days 7-8, 10mg po daily on days 9-10 famotidine [Pepcid] 40 mg tablet 40 mg PO DAILY 10 Days Qty: 10 0RF No Action atorvastatin 10 mg tablet 10 mg PO DAILY Qty: 90 3RF levothyroxine [Levoxyl] 25 mcg tablet 25 mcg PO DAILY Qty: 90 0RF Follow-up/Referrals: Massiel,MD Samson [Primary Care Provider, Unknown] Time of Disposition: 11:06 Quality NIHSS Nursing Documentation ED NIHSS nursing documentation: reviewed/agree
--- OUTSIDE RECORDS SUMMARY | 2025-04-01 13:38 | XMS_ITS | Clinical Summary ---
Author Organization [facility] [employer] Address [address] [facility] [place] [address] Care Team Providers Care Commodity Management Specialist Name Role Phone Sandra Moreau MD Primary Care Provider [phone] Source Comments [facility] [employer],non-owned Affiliates and Associated Physician Practices is amultiple site organization consisting of ambulatory clinics and hospital sitesin [place], [place], [place] and [place]. This disclosure is being madepursuant to the Care Everywhere program and may not contain all information available regarding this patient. Last updated 18.[facility] [employer] Allergies Active Allergy Reactions Criticality Noted Date [...] 11/27/2024 Active Problems No known active problems Immunizations Immunization Administration Dates Next Due FLU [...] on file Legal Sex Female 6:06 AM DRAFTING CLERK Gender Identity Not on file Sexual Orientation Not on file Last Filed Vital Signs Vital Sign Reading Time Taken Comments Blood Pressure 122/80 11/27/2024 10:22 AM CDT Pulse 80 11/27/2024 10:22 AM CDT Temperature 36.9 C (98.5 F) 07/04/2024 5:10 PM DRAFTING CLERK Respiratory Rate 21 07/04/2024 4:59 PM DRAFTING CLERK Oxygen Saturation 96% 07/04/2024 5:10 PM DRAFTING CLERK Inhaled Oxygen Concentration - - Weight 59.4 kg (131 lb) 11/27/2024 10:22 AM CDT Height 154.9 cm (5' 1) 11/27/2024 10:22 AM CDT Body Mass Index 24.75 11/27/2024 10:22 AM CDT Plan of Treatment Upcoming Encounters Date Type Department Care Team (Late st Contact Info) Description 12/03/2025 10:00 AM CDT Testing Visit [facility] - ENT [address], [address] [place] [address] Melissa Brantley, AuD [address] [facility] [address] [place] [address] 12/03/2025 10:30 AM CDT Office Visit [facility] - ENT [address], [address] [place] [address] Cristobal Sow MD [address] [facility] [address] [place] [address] Health Maintenance Due Date Last Done Comments [...] MEDICARE AWV CALENDAR YEAR 2024 COVID-19 VACCINE (2024- season) 2025 11/15/2021, 06/15/2021, 09/30/2020, Additional history [...] patient's age to complete this topic Insurance [employer] MEDICARE ADV Care Teams Commodity Management Specialist Relationship Specialty Start Date End Date Sandra Moreau MD [address] [place] [address] PCP - General Family Medicine 01/15/24
--- OUTSIDE RECORDS SUMMARY | 2025-04-01 13:38 | XMS_ITS | Clinical Summary ---
Author Organization [facility] Address [address] [place] [address] Phone Care Team Providers Care Flux Plant Operator Name Role Phone Everardo Amador MD Primary Care Provider [phone] Allergies Active Allergy Reactions Criticality Noted Date [...] Comments Blood Pressure 101/71 05/15/2018 10:57 AM COAT ROOM ATTENDANT Pulse 68 05/15/2018 10:57 AM COAT ROOM ATTENDANT Temperature 36.5 C (97.7 F) 05/15/2018 10:38 AM COAT ROOM ATTENDANT Respiratory Rate 15 05/15/2018 10:57 AM COAT ROOM ATTENDANT Oxygen Saturation 94% 05/15/2018 10:57 AM COAT ROOM ATTENDANT Inhaled Oxygen Concentration - - Weight 54.9 kg (121 lb) 05/15/2018 9:57 AM COAT ROOM ATTENDANT Height 154.9 cm (5' 1) 05/15/2018 9:57 AM COAT ROOM ATTENDANT Body Mass Index 22.86 05/15/2018 9:57 AM COAT ROOM ATTENDANT Plan of Treatment Health Maintenance Due Date [...] Comments COLONOSCOPY REPORT 05/15/2018 10 :41 AM COAT ROOM ATTENDANT from Last 3 Months or Most Recently Relevant to Health Maintenance Results * COLONOSCOPY REPORT (05/15/2018 10:41 AM COAT ROOM ATTENDANT) Narrative Procedure Note Pavithra Mercado MD - 05/15/2018 10:41 AM CST [facility] Endoscopy Patient Name: Magdalena Peña [...] for surveillance. Procedure Code(s): --- Professional --- 09681, Colonoscopy, flexible; diagnostic, including collection of specimen(s) by brushing or washing, when performed (separate procedure) CPT copyright 2016 [employer]. All rights reserved. The codes documented in this report are preliminary and upon core winder machine operator review may be revised to meet current compliance requirements. Pavithra Mercado MD 05/15/2018 10:41:09 AM This report has been signed electronically. Number of Addenda: [id number] [place] [address] Pavithra Mercado MD GI PROCEDURE ORDERABLES Fi nal Result from Last 3 Months or Most Recently Relevant to Health Maintenance Care Teams Flux Plant Operator Relationship Specialty Start Date End Date Everardo Amador MD [address] [place] [address] PCP - General Family Practice 05/08/18
--- OUTSIDE RECORDS SUMMARY | 2025-04-01 13:38 | XMS_ITS | Clinical Summary ---
Author Organization [facility] Address [address] [place] [address] Care Team Providers Care Terminal Carman Name Role Phone Unavailable Primary Care Provider [...] Vaccine ( - 2023-2 5 season) 2025 Influenza Adult (#1) 2025 RSV Immunization or 60+ Years (1 - 1-dose 75+ series) 11/23/2031 Hepatitis A Vaccines Aged Out No long er eligible based on patient's age to complete this topic Meningococcal B Vaccine Aged Out No l onger eligible based on patient's age to complete this topic Meningococcal Vaccine Aged Out No colten randall eligible based on patient's age to complete this topic RSV Immunizations Under 20 Months Aged Out No longer eligible based on patient's age to complete this topic
== END 2025-04-01 11:09 | disposition home or self-care (01) ==
PROVIDERS: Emergency Provider Nurse Practitioner Family; PCP Hospitalist
DX: L50.9 Urticaria, unspecified (principal); E78.2 Mixed hyperlipidemia; M81.0 Age-related osteoporosis without current pathological fracture; Z87.891 Personal history of nicotine dependence
CPT/HCPCS: 99213; G0463

== ENCOUNTER 2025-04-09 07:13 | Outpatient (CLI) | payer MEDICARE, SELFPAY ==
--- NOTE | ~2025-04-09 | DEXA_ITS ---
Bone Density Report Name: BENITA MUIR Age: 69 Sex: Female Ethnicity: White Date of : 1955 Indication: postmenopausal; screening for osteoporosis; Referring Provider: JAZMINE NIEVES Study: Bone densitometry was performed. Exam Date: April 09, 2025 Accession number: [id number] Bone Density: Region BMD T-score Z-score Classification AP Spine(L1-L4) 0.772 -2.5 -0.5 Osteoporosis Femoral Neck (Left) 0.576 -2.5 -0.8 Osteoporosis Total Hip (Left) 0.766 -1.4 0.0 Osteopenia Femoral Neck (Right) 0.574 -2.5 -0.8 Osteoporosis Total Hip (Right) 0.728 -1.8 -0.3 Osteopenia Total Hip Mean 0.747 -1.6 -0.2 Osteopenia World Health Organization criteria for BMD impression classify patients as: Normal (T-score at or above -1.0), Osteopenia (T-score between -1.0 and -2.5), or Osteoporosis (T-score at or below -2.5). 10-year Fracture Risk: FRAX not reported because: Some T-score for Spine Total or Hip Total or Femoral Neck at or below -2.5 Clinical Information Provided by Patient: Has used the following medications: Vitamin D, Calcium Patient maximum height was 61.5 Drinks caffeinated beverages Onset of menses at age 14 Number of children 2 Impression: The patient has osteoporosis, based on the Total Spine T-score. Discussion: INCREASED RISK OF FRACTURE. BONE DENSITY IS UNDESIRABLY LOW AT ONE OR MORE SKELETAL SITES, CONSISTENT WITH POSTMENOPAUSAL OSTEOPOROSIS. This patient's lowest T-score meets the World Health Organization's (WHO) criteria for osteoporosis at one or more sites (T-score -2.5 or below). In untreated patients, the risk of osteoporotic fracture increases approximately two-fold for each 1.0 SD decrease in T-score. Low bone density is not the only risk factor for fracture; also consider factors such as patient's age, frailty or poor health, risk of falling, risk of injury, previous osteoporotic fracture, family history of osteoporosis, cigarette smoking, low body weight, etc. Not everyone with low bone mineral density has osteoporosis; osteomalacia and other metabolic bone disorders should also be considered. Patients who have osteoporosis should be evaluated for specific diseases and conditions (secondary causes) that may cause or contribute to bone loss. The [place] [employer]ocrinologists (AACE) and National Osteoporosis Foundation (NOF) recommend pharmacologic intervention for all postmenopausal women whose T-score is in this range. The patient should follow a healthful lifestyle (good nutrition with adequate calcium and vitamin D, and appropriate weight-bearing exercise). Follow-Up: Consider a repeat BMD and Vertebral Fracture Assessment (VFA) exam in 2 years or sooner if medically necessary, to reassess this patient's status. Reported by: ANTON on 04/09/2025 7:59:00 AM. Reviewed, dictated and finalized at location A.
--- OUTSIDE RECORDS SUMMARY | 2025-04-09 07:18 | XMS_ITS | Clinical Summary ---
Author Organization [facility] Address [address] [place] [address] Phone Care Team Providers Care Tree Marker Name Role Phone Everardo Amador MD Primary Care Provider [phone] Allergies Active Allergy Reactions Criticality Noted Date [...] Comments Blood Pressure 101/71 05/15/2018 10:57 AM RECYCLE COORDINATOR Pulse 68 05/15/2018 10:57 AM RECYCLE COORDINATOR Temperature 36.5 C (97.7 F) 05/15/2018 10:38 AM RECYCLE COORDINATOR Respiratory Rate 15 05/15/2018 10:57 AM RECYCLE COORDINATOR Oxygen Saturation 94% 05/15/2018 10:57 AM RECYCLE COORDINATOR Inhaled Oxygen Concentration - - Weight 54.9 kg (121 lb) 05/15/2018 9:57 AM RECYCLE COORDINATOR Height 154.9 cm (5' 1) 05/15/2018 9:57 AM RECYCLE COORDINATOR Body Mass Index 22.86 05/15/2018 9:57 AM RECYCLE COORDINATOR Plan of Treatment Health Maintenance Due Date [...] Comments COLONOSCOPY REPORT 05/15/2018 10 :41 AM RECYCLE COORDINATOR from Last 3 Months or Most Recently Relevant to Health Maintenance Results * COLONOSCOPY REPORT (05/15/2018 10:41 AM RECYCLE COORDINATOR) Narrative Procedure Note Pavithra Mercado MD - 05/15/2018 10:41 AM CST [facility] Endoscopy Patient Name: Magdalena Peña [...] for surveillance. Procedure Code(s): --- Professional --- 44803, Colonoscopy, flexible; diagnostic, including collection of specimen(s) by brushing or washing, when performed (separate procedure) CPT copyright 2016 [employer]. All rights reserved. The codes documented in this report are preliminary and upon transit planning manager review may be revised to meet current compliance requirements. Pavithra Mercado MD 05/15/2018 10:41:09 AM This report has been signed electronically. Number of Addenda: [id number] [place] [address] Pavithra Mercado MD GI PROCEDURE ORDERABLES Fi nal Result from Last 3 Months or Most Recently Relevant to Health Maintenance Care Teams Tree Marker Relationship Specialty Start Date End Date Everardo Amador MD [address] [place] [address] PCP - General Family Practice 05/08/18
--- OUTSIDE RECORDS SUMMARY | 2025-04-09 07:18 | XMS_ITS | Clinical Summary ---
Author Organization [facility] Address [address] [place] [address] Care Team Providers Care Area Operations Manager Name Role Phone Unavailable Primary Care Provider [...] Scan (General) 2021 COVID-19 Vaccine ( - 2024-2 6 season) 2025 Influenza Adult (#1) 2025 RSV [...]
--- OUTSIDE RECORDS SUMMARY | 2025-04-09 07:18 | XMS_ITS | Clinical Summary ---
Author Organization [facility] [employer] Address [address] [place] [address] Care Team Providers Care Building Economist Name Role Phone Sandra Moreau MD Primary Care Provider [phone] Source Comments [facility],non-owned Affiliates and Associated Physician Practices is amultiple site organization consisting of ambulatory clinics and hospital sitesin [place], [place], [place] and [place]. This disclosure is being madepursuant to the Care Everywhere program and may not contain all information available regarding this patient. Last updated 18.[facility] Allergies Active Allergy Reactions Criticality Noted Date [...] on file Legal Sex Female 6:06 AM TELECOMMUNICATION SYSTEMS DESIGNER Gender Identity Not on file Sexual Orientation Not on file Last Filed Vital Signs Vital Sign Reading Time Taken Comments Blood Pressure 122/80 11/27/2024 10:22 AM CDT Pulse 80 11/27/2024 10:22 AM CDT Temperature 36.9 C (98.5 F) 07/04/2024 5:10 PM TELECOMMUNICATION SYSTEMS DESIGNER Respiratory Rate 21 07/04/2024 4:59 PM TELECOMMUNICATION SYSTEMS DESIGNER Oxygen Saturation 96% 07/04/2024 5:10 PM TELECOMMUNICATION SYSTEMS DESIGNER Inhaled Oxygen Concentration - - Weight 59.4 [...] [address] [place] [address] Melissa Brantley, AuD [address] [facility] [address] [place] [address] 12/03/2025 10:30 AM CDT Office Visit [facility] - ENT [address] [place] [address] Cristobal Sow MD [address] [facility] [address] [place] [address] Health Maintenance Due Date Last Done Comments [...] topic Insurance [employer] MEDICARE ADV Care Teams Building Economist Relationship Specialty Start Date End Date Sandra Moreau MD [address] [place] [address] PCP - General Family Medicine 01/15/24
== END 2025-04-09 07:14 | disposition home or self-care (01) ==
LOC: ANHFOHIMG 07:16
PROVIDERS: PCP Student in an Organized Health Care Education/Training Program; Visit Provider Student in an Organized Health Care Education/Training Program
DX: M81.0 Age-related osteoporosis without current pathological fracture (principal); M85.89 Other specified disorders of bone density and structure, multiple sites; Z78.0 Asymptomatic menopausal state; Z13.820 Encounter for screening for osteoporosis
CPT/HCPCS: 77080